=== PATIENT | male | born 1945 | race Caucasian/White ===

== ENCOUNTER → 2020-07-16 | Outpatient (CLI) | payer MEDICARE | LOC: CARD 14:00 | PROVIDERS: ATTEND Internal Medicine Cardiovascular Disease | DX: I08.1 Rheumatic disorders of both mitral and tricuspid valves (principal) | CPT/HCPCS: 93306 ==

== ENCOUNTER → 2020-07-17 | Outpatient (CLI) | payer MEDICARE ==
[~2020-07-17] VITALS: Ht 180 cm; Wt 72.0 kg
[~2020-07-17] MED LIST: CATHETER FLUSH 10 ML SYR IV PRN; REGADENOSON 0.4 MG/5 ML SYR (LEXISCAN) IV ONE
[2020-07-17 08:49] VITALS: BP 116/55
--- NOTE | 2020-07-17 13:01 | STRESS TEST ---
DATE OF SERVICE: 07/17/2020 RESTING AND POST REGADENOSON TECHNETIUM-99M TETROFOSMIN SPECT CT IMAGING ORDERING PHYSICIAN: Dr. Salas. CLINICAL DIAGNOSIS: Shortness of breath. Baseline images were carried out after injection of 10.44 mCi of technetium-99m Tetrofosmin. This was followed by 0.4 mg regadenoson and 31.8 mCi of technetium-99m Tetrofosmin for stress imaging. The electrocardiogram showed sinus rhythm at baseline. There was subtle nonspecific ST abnormality that became somewhat more prominent with regadenoson infusion and gradually returned towards baseline. He noted some shortness of breath. Overall, he tolerated the procedure well. Review of images at rest and following stress does not indicate any significant perfusion defects consistent with myocardial ischemia or infarction. Gated images show normal global left ventricular systolic function with normal regional wall motion. Left ventricular ejection fraction is calculated to be 53%. Left ventricular end diastolic volume is 105 mL. TID is absent (0.92). CONCLUSIONS: 1. No evidence of any significant myocardial ischemia or infarction on this study. 2. Normal regional wall motion. 3. Normal global left ventricular systolic function with ejection fraction of 53%. 4. Mild to moderate cardiomegaly. Job ID: [id number] DocumentID: [id number] Dictated Date: 07/17/2020 10:05:22 Hoisting Engineer Date: 07/17/2020 13:01:11 Dictated By: GIANNI SALAS MD, MA, FACP, FACC,
== END ==
LOC: CARD 08:15
PROVIDERS: ATTEND Internal Medicine Cardiovascular Disease
DX: I51.7 Cardiomegaly (principal)
CPT/HCPCS: 78452; 93017; A9502